=== PATIENT | male | born 1945 | race Caucasian/White ===

== ENCOUNTER 2020-06-29 14:46 | Inpatient (IN) | payer OTHER ==
[~2020-06-29] VITALS: Ht 180.3 cm; Wt 107.5 kg
[~2020-06-29 14:46] MED LIST: ASPI325 PO; CHOL10002 PO; EZET10; METO25ER; PINDOLOL PO; SIMV40 PO
[2020-06-29 15:33] LABS: BASOPHILS ABSOLUTE AUTO 0.01 K/mm3 (0.00-0.23); BASOPHILS PERCENT AUTO 0 % (0-2); EOSINOPHILS PERCENT AUTO 0 % (0-6); Hematocrit 42.7 % (37.0-53.0); Hemoglobin 13.8 g/dL (13.5-17.5); IMMATURE GRAN ABSOLUTE AUTO 0.03 K/mm3 (0.00-0.10); IMMATURE GRAN PERCENT AUTO 1 % (0-1); LYMPHOCYTES ABSOLUTE AUTO 1.19 K/mm3 (0.84-5.20); LYMPHOCYTES PERCENT AUTO 19 % (21-46); MONOCYTES ABSOLUTE AUTO 0.51 K/mm3 (0.16-1.47); MONOCYTES PERCENT AUTO 8 % (4-13); Mean Corpuscular HGB 29.6 pg (26.0-34.0); Mean Corpuscular HGB Conc 32.3 g/dL (31.5-36.5); Mean Corpuscular Volume 92 fL (80-100); Mean Platelet Volume 11.6 fL (9.1-12.4); NEUTROPHILS PERCENT AUTO 73 % (41-73); Platelet Count 219 K/mm3 (150-400); RDW Coefficient Variation 13.1 % (11.7-14.2); RDW Standard Deviation 44.2 fL (35.1-46.3); Red Blood Cell Count 4.66 M/mm3 (4.30-5.90); White Blood Cell Count 6.44 K/mm3 (4.00-11.30)
[2020-06-29 15:49] LABS: Alanine Aminotransfer (ALT/SGP 78 U/L (12-78); Albumin, Blood 2.8 g/dL (3.4-5.0); Albumin/Globulin Ratio 0.6 (0.8-1.8); Alk Phos 79 U/L (50-136); Anion Gap 7 mmol/L (6-16); Aspartate Aminotrans (AST/SGOT 75 U/L (12-37); Bilirubin, Total 0.8 mg/dL (0.1-1.0); Blood Urea Nitrogen 17 mg/dL (8-24); Bun/Creatinine Ratio 21.9 (12.0-20.0); CO2, Blood 26 mmol/L (21-32); Calcium, Blood 8.3 mg/dL (8.5-10.1); Chloride, Blood 103 mmol/L (98-108); Creatinine, Blood 0.78 mg/dL (0.60-1.20); Globulin, Blood 4.5 g/dL (2.2-4.0); Glomerular Filtration Rate >60 (60-); Glucose, Blood 130 mg/dL (70-99); Potassium, Blood 4.1 mmol/L (3.5-5.5); Sodium, Blood 136 mmol/L (136-145); Total Protein, Blood 7.3 g/dL (6.4-8.2); Troponin I <0.015 ng/mL (0.000-0.040)
[2020-06-29 16:51] LABS: Influenza A, PCR Negative (NEGATIVE); Influenza B, PCR Negative (NEGATIVE); Resp Syncytial Virus, PCR Negative (NEGATIVE); SARS-Cov-2 (COVID-19) PCR, MMC Positive (NEGATIVE)
[2020-06-29] MEDS ORDERED: [UNRECOGNIZED DRUG - OTHER] PO (17:59)
[2020-06-29] MEDS ORDERED: ATORVASTATIN CA80 M1 PO (18:01)
[2020-06-29] MEDS ORDERED: CYMBALTA60 MG PO (18:02)
[2020-06-29] MEDS ORDERED: VITAMIN D31000 UNI1 PO (18:03)
[2020-06-29] MEDS ORDERED: Vitamin B Comple1 EA PO (20:33)
[2020-06-29] MEDS ORDERED: VITAMIN D32000 UNI1 PO (20:35)
[2020-06-30 05:27] LABS: BASOPHILS ABSOLUTE AUTO 0.01 K/mm3 (0.00-0.23); BASOPHILS PERCENT AUTO 0 % (0-2); EOSINOPHILS PERCENT AUTO 0 % (0-6); Hematocrit 43.9 % (37.0-53.0); Hemoglobin 14.2 g/dL (13.5-17.5); IMMATURE GRAN ABSOLUTE AUTO 0.02 K/mm3 (0.00-0.10); IMMATURE GRAN PERCENT AUTO 1 % (0-1); LYMPHOCYTES ABSOLUTE AUTO 0.79 K/mm3 (0.84-5.20); LYMPHOCYTES PERCENT AUTO 19 % (21-46); MONOCYTES ABSOLUTE AUTO 0.26 K/mm3 (0.16-1.47); MONOCYTES PERCENT AUTO 6 % (4-13); Mean Corpuscular HGB 29.8 pg (26.0-34.0); Mean Corpuscular HGB Conc 32.3 g/dL (31.5-36.5); Mean Corpuscular Volume 92 fL (80-100); Mean Platelet Volume 10.9 fL (9.1-12.4); NEUTROPHILS ABSOLUTE AUTO 3.15 K/mm3 (1.96-9.15); NEUTROPHILS PERCENT AUTO 75 % (41-73); Platelet Count 217 K/mm3 (150-400); RDW Coefficient Variation 12.7 % (11.7-14.2); RDW Standard Deviation 43.7 fL (35.1-46.3); Red Blood Cell Count 4.77 M/mm3 (4.30-5.90); White Blood Cell Count 4.23 K/mm3 (4.00-11.30)
[2020-06-30 05:42] LABS: Anion Gap 6 mmol/L (6-16); Blood Urea Nitrogen 19 mg/dL (8-24); Bun/Creatinine Ratio 27.9 (12.0-20.0); CO2, Blood 28 mmol/L (21-32); Calcium, Blood 8.6 mg/dL (8.5-10.1); Chloride, Blood 105 mmol/L (98-108); Creatinine, Blood 0.68 mg/dL (0.60-1.20); Glomerular Filtration Rate >60 (60-); Glucose, Blood 166 mg/dL (70-99); Potassium, Blood 4.1 mmol/L (3.5-5.5); Sodium, Blood 139 mmol/L (136-145)
--- NOTE | 2020-06-30 05:52 | NUR ---
SHIFT SUMMARY PATIENT ALERT AND ORIENTED. DOES REQUIRE A ONE ASSIST WITH TRANSFERS AND AMBULATION TO ENSURE PATIENT SAFETY IN HIS ROOM HE IS VERY WEAK. HE CALLS APPROPRIATELY AND DOESN'T TRY TO GET OUT OF BED WITHOUT HELP. HE HAD NO COMPLAINTS OF PAIN OR SHORTNESS OF BREATH. HE IS CURRENTLY ON 4 LITERS O2 VIA NASAL CANULA. IV PATENT AND FLUSHED. BED IN LOWEST POSITION WITH WHEELS LOCKED. CALL LIGHT WITHIN REACH. REPORT GIVEN TO ONCOMING RN.
--- NOTE | 2020-06-30 18:30 | NUR ---
SHIFT SUMMARY: NO ACUTE EVENTS TODAY. C/O NECK PAIN; TYLENOL GIVEN WITH COMPLETE RELIEF. ON O2 @ 4 L/MIN, SATS 91-92%, UNABLE TO WEAN SUCCESSFULLY AT THIS TIME. PROD COUGH, THICK YELLOW SPUTUM. APPETITE OK, ENCOURAGING PO FLUIDS. ENCOURAGED OOB MORE, BUT HE DECLINED, CITING WEAKNESS. GETTING UP TO BR WITH SBA, VOIDING FINE. NO OTHER COMPLAINTS.
--- NOTE | 2020-07-01 06:58 | NUR ---
SHIFT SUMMARY PATIENT ALERT AND ORIENTED. HAD NO COMPLAINTS OF PAIN OR SHORTNESS OF BREATH. SLEPT WELL OVERNIGHT. IVS PATENT AND FLUSHED. BED IN LOWEST POSITION WITH WHEELS LOCKED AND ALARM ON. CALL LIGHT WITHIN REACH. REPORT GIVEN TO ONCOMING RN.
--- NOTE | 2020-07-01 08:22 | NUR ---
OXYGEN TITRATED DOWN TO 3 L/MIN NC, O2 SAT 91-93%. TOLERATING WELL SO FAR. WILL CONTINUE TO WEAN ABLE.
--- NOTE | 2020-07-01 12:02 | NUR ---
SPOT CHECKED O2 SAT, 88% ON 3 L/MIN NC. INCREASED O2 TO 4 L/MIN NC, ADDED HUMIDIFICATION. RESULTING O2 SAT 90%. EDUCATED PATIENT TO GET OOB TO CHAIR TODAY, USE IS AND FLUTTER VALVE EVERY HOUR, TO WHICH HE VERBALIZED UNDERSTANDING.
--- NOTE | 2020-07-01 18:42 | NUR ---
SHIFT SUMMARY: ATTEMPTED TO WEAN PT FROM O2, STILL AT 4 L/MIN NC. OF NOTE, WHEN PATIENT HAS EXTENSION TUBING ATTACHED TO NC, O2 SATS ARE IN MID 80'S, BUT WHEN EXTENSION TUBING AND HUMIFICATION DEVICE ARE REMOVED, SATS INCREASE TO 90-91% ON 4 L/MIN AND PATIENT FEELS THAT HE IS BREATHING BETTER. WE DECIDED THAT HE WILL USE A PORTABLE OXYGEN TANK TO GO TO THE BR SO HIS SATS DON'T DROP. PT GOT UP TO CHAIR, IS USING IS AND FLUTTER. APPETITE AND FLUID INTAKE IMPROVING. IN BETTER SPIRITS, IS LOOKING FORWARD TO GOING HOME SOON.
--- NOTE | 2020-07-02 05:56 | NUR ---
SHIFT SUMMARY PATIENT ALERT AND ORIENTED. HAD NO COMPLAINTS OF PAIN OR SHORTNESS OF BREATH. PATIENT STILL ON SUPPLEMENTAL OXYGEN BUT HAS BEEN ABLE TO BE TITRATED DOWN TO 2 LITERS VIA NASAL CANULA. IV PATENT AND FLUSHED. BED IN LOWEST POSITION WITH WHEELS LOCKED. CALL LIGHT WITHIN REACH. REPORT GIVEN TO ONCOMING RN.
--- NOTE | 2020-07-02 17:36 | NUR ---
SHIFT SUMMARY PT ON 2L OXYGEN VIA NC AND TOLERATING WELL. PT UP TO BATHROOM AND CHAIR INDEPENDENTLY. NO COMPLAINTS OF PAIN. PT REPORTS NOT VERY GOOD APPETITE. THIS RN ENCOURAGED PT TO EAT SOME IF ABLE. NO ACUTE CHANGES THIS SHIFT. CALL LIGHT IN REACH. WILL CONTINUE TO MONITOR AND REPORT TO ONCOMING RN.
--- NOTE | 2020-07-03 05:34 | NUR ---
SUMMARY: A/OX4, CALLS APPROPRIATELY AND COOPERATIVE W/CARE. HE'S UP W/SBA AND PORTABLE O2 TO TOILET W/SPO2 DESATURATIONS NOTED TO 70'S% UPON EXERTION. HE RECOVERS QUICKLY AT REST BUT O2 TITRATED UP TO 2.5L VIA NC THIS SHIFT TO MAINTAIN SPO2 >88%. RESPS E/U AT REST AND SOB OBERVED W/ACTIVITY. OCCASIONAL DRY HACKING COUGH NOTED. CONT BIOX INTACT. HE DENIES NAUSEA BUT REPORTS DECREASED APPETITE. NO IV AT THIS TIME D/T PREVIOUS LEAKING. PT REQUESTED TO "WAIT TO RESTART IT UNTIL CLOSER TO NEEDING IV MEDS", NEXT DOSE REMDESIVIR NOT UNTIL 1200. NO ACUTE CHANGES, VSS/AFEBRILE. WCTM AND REPORT TO DAY RN.
--- NOTE | 2020-07-03 05:59 | NUR ---
SUMMARY: PT A/O TO SELF AND FAMILY BUT SHE HAS DEMENTIA SO IS CONFUSED TO PLACE, EVENT AND DATE. REMINDERS PROVIDED PRN AND BED ALARM ARMED FOR POSSIBLE IMPULSIVITY. SHE REPORTS FEELING "PUNY" THIS MORNING AND ADMITS TO BEING WEAK AND FATIGUED. SHE DENIES DYSPNEA, SOB, PAIN AND NAUSEA. PO INTAKE ENCOURAGED BUT PT SEEMS TO LACK APPETITE. SPO2 IS WNL ON 2L O2 VIA NC W/CONT BIOX INTACT. LS ARE COARSE T/O W/DIM BASES. WBC'S, LDH AND CRP ELEVATED THIS AM. IV REMDESIVIR BEING RECIEVED. SHE REMAINS IN AFIB ON TELEMETRY W/HR 70'S BPM ON ELIQUIS. NO ACUTE CHANGES, VSS/AFEBRILE. SNF LIKELY NEEDED UPON D/C. WCTM AND REPORT TO DAY RN.
--- NOTE | 2020-07-03 13:42 | NUR ---
ALERT. ORIENTED. WANTS TO LEAVE TODAY. ON 2.5 LPM WITH BASELINE AT 0. CONTINUOUS SATS ON. DENIES ANY PAIN OR DISCOMFORT. WCTM
--- NOTE | 2020-07-04 04:57 | NUR ---
SUMMARY: A/OX4, CALLS APPROPRIATELY AND PLEASANT/COOPERATIVE W/CARE. HE'D PREVIOUSLY C/O DRY NOSE BUT REPORTS SALINE NASAL SPRAY HAS BEEN HELPFUL. HE STATES "APPETITE IS GETING BETTER WELL". PT REMAINS ON 2.5L O2 VIA NC BUT STILL DESAT'S TO 70'S-80'S% W/EXERTION, CONT BIOX INTACT. SBA REQUIRED TO TOILET TO MANAGE PORTABLE O2 AND LINES. LS CLEAR AND DIM T/O W/RESPS E/U AT REST. REMDESIVIR TX COMPLETED ON DAY SHIFT AND PT WILL HAVE PROBABLE HOME O2 EVAL TODAY THEN POSSIBLE D/C AFTERWARD. PT IS READY AND WANTING TO GO HOME. NO ACUTE CHANGES, VSS/AFEBRILE. WCTM AND REPORT TO DAY RN.
--- NOTE | 2020-07-04 15:12 | NUR ---
[place] no iv assess. ok with this.
--- NOTE | 2020-07-04 16:28 | NUR ---
ALERT. ORIENTED. LYING PRONE SINCE ABOUT 1500 WITH CONTINUOUS SAT MONITOR ON SHOWING MID 90'S WITH 2 LPM VIA N/C. DENIES ANY PAIN OR DISCOMFORT. SHOWERED ON OWN WITHOUT DIFFICULTY ON 2 LPM OXYGEN. ELSA.
[2020-07-05 05:19] LABS: Albumin, Blood 2.7 g/dL (3.4-5.0); Anion Gap 3 mmol/L (6-16); Blood Urea Nitrogen 15 mg/dL (8-24); Bun/Creatinine Ratio 24.2 (12.0-20.0); CO2, Blood 29 mmol/L (21-32); Calcium, Blood 8.1 mg/dL (8.5-10.1); Chloride, Blood 108 mmol/L (98-108); Creatinine, Blood 0.62 mg/dL (0.60-1.20); Glomerular Filtration Rate >60 (60-); Glucose, Blood 120 mg/dL (70-99); Sodium, Blood 140 mmol/L (136-145)
--- NOTE | 2020-07-05 05:28 | NUR ---
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 slept well overnight. denies pain, vss. sob w/ exertion. continuing 2L o2 via nc satting in mid to high 90's. no acute changes. call light within reach.
[2020-07-05] MEDS ORDERED: DEXA6 PO (14:08)
[2020-07-05] MEDS ORDERED: B-COMPLEX WITH1 EAC2 PO (14:08)
--- NOTE | 2020-07-05 15:17 | NUR ---
PATIENT DISCHARGED HOME AT 1505. [facility] PICKED THE PATIENT UP. THE PATIENT'S DAUGHTER IS PLANNING ON PICKING UP HIS PRESCRIPTIONS.
== END 2020-07-05 15:08 | disposition home or self-care (01) | DRG 177 ==
LOC: ER 14:46 → MEDS 18:05 → ERHOLD 18:05 → MEDS 20:10
PROVIDERS: Internal Medicine; Nurse Practitioner Acute Care; Physician Assistant; ADMIT Internal Medicine
PROC: 3E0333Z Introduction of Anti-inflammatory into Peripheral Vein, Percutaneous Approach (ICD-10-PCS; principal; 2020-06-29)
PROC: XW033E5 Introduction of Remdesivir Anti-infective into Peripheral Vein, Percutaneous Approach, New Technology Group 5 (ICD-10-PCS; 2020-06-29)
DX: U07.1 COVID-19 (principal); J12.9 Viral pneumonia, unspecified; J96.01 Acute respiratory failure with hypoxia; E78.5 Hyperlipidemia, unspecified; G62.9 Polyneuropathy, unspecified; I10 Essential (primary) hypertension; I25.10 Atherosclerotic heart disease of native coronary artery without angina pectoris; Z99.81 Dependence on supplemental oxygen; Z87.891 Personal history of nicotine dependence; I25.2 Old myocardial infarction; Z95.5 Presence of coronary angioplasty implant and graft
CPT/HCPCS: 0241U; 36415; 71045; 80048; 80053; 80069; 83880; 84145; 84484; 85025; 85379; 93005; 93010; 94761; 96374; 99285-25; A9270; A9270-GY; J1650; J7030; J7050

== ENCOUNTER 2020-08-16 14:45 | Emergency (ER) | payer OTHER ==
[~2020-08-16] VITALS: Ht 180.3 cm; Wt 109.8 kg
[~2020-08-16 14:45] MED LIST changes: +ATORVASTATIN CA80 M1 PO; +B-COMPLEX WITH1 EAC2 PO; +CYMBALTA60 MG PO; +DEXA6 PO; +VITAMIN D31000 UNI1 PO; +VITAMIN D32000 UNI1 PO; +Vitamin B Comple1 EA PO; +[UNRECOGNIZED DRUG - OTHER] PO
[2020-08-16 15:22] LABS: BASOPHILS ABSOLUTE AUTO 0.05 K/mm3 (0.00-0.23); BASOPHILS PERCENT AUTO 1 % (0-2); EOSINOPHILS PERCENT AUTO 3 % (0-6); Hematocrit 38.9 % (37.0-53.0); Hemoglobin 12.4 g/dL (13.5-17.5); IMMATURE GRAN ABSOLUTE AUTO 0.04 K/mm3 (0.00-0.10); IMMATURE GRAN PERCENT AUTO 0 % (0-1); LYMPHOCYTES ABSOLUTE AUTO 2.27 K/mm3 (0.84-5.20); LYMPHOCYTES PERCENT AUTO 21 % (21-46); MONOCYTES ABSOLUTE AUTO 1.13 K/mm3 (0.16-1.47); MONOCYTES PERCENT AUTO 11 % (4-13); Mean Corpuscular HGB Conc 31.9 g/dL (31.5-36.5); Mean Corpuscular Volume 94 fL (80-100); Mean Platelet Volume 11.7 fL (9.1-12.4); NEUTROPHILS ABSOLUTE AUTO 6.96 K/mm3 (1.96-9.15); NEUTROPHILS PERCENT AUTO 65 % (41-73); Platelet Count 262 K/mm3 (150-400); RDW Coefficient Variation 14.4 % (11.7-14.2); RDW Standard Deviation 49.6 fL (35.1-46.3); Red Blood Cell Count 4.14 M/mm3 (4.30-5.90); White Blood Cell Count 10.75 K/mm3 (4.00-11.30)
[2020-08-16 15:37] LABS: Alanine Aminotransfer (ALT/SGP 35 U/L (12-78); Albumin, Blood 2.9 g/dL (3.4-5.0); Albumin/Globulin Ratio 0.7 (0.8-1.8); Alk Phos 97 U/L (50-136); Anion Gap 4 mmol/L (6-16); Aspartate Aminotrans (AST/SGOT 22 U/L (12-37); Blood Urea Nitrogen 15 mg/dL (8-24); Bun/Creatinine Ratio 17.7 (12.0-20.0); CO2, Blood 29 mmol/L (21-32); Calcium, Blood 8.5 mg/dL (8.5-10.1); Chloride, Blood 109 mmol/L (98-108); Creatinine, Blood 0.85 mg/dL (0.60-1.20); Globulin, Blood 4.2 g/dL (2.2-4.0); Glomerular Filtration Rate >60 (60-); Glucose, Blood 143 mg/dL (70-99); Potassium, Blood 4.1 mmol/L (3.5-5.5); Sodium, Blood 142 mmol/L (136-145); Total Protein, Blood 7.1 g/dL (6.4-8.2); Troponin I <0.015 ng/mL (0.000-0.040)
[2020-08-16] MEDS ORDERED: Flonase 0.05% N16 GM (16:25)
[2020-08-16] MEDS ORDERED: DOXY100 PO (16:25)
== END 2020-08-16 16:46 | disposition home or self-care (01) ==
LOC: ER 14:45
PROVIDERS: Physician Assistant
DX: J18.9 Pneumonia, unspecified organism (principal); H92.02 Otalgia, left ear; Z79.82 Long term (current) use of aspirin; Z79.899 Other long term (current) drug therapy
CPT/HCPCS: 71046; 80053; 84484; 85025; 93005; 93010; 99285-25